=== PATIENT | female | born 1950 | race Caucasian/White ===

== ENCOUNTER → 2020-06-26 10:31 | Outpatient (CLI) | payer MEDICARE, SELFPAY ==
--- NOTE | ~2020-06-26 | XR_ITS ---
XR lumbar spine 2-3V 06/26/2020 11:03 Indication: Acute midline back pain Procedure: 3 views of the lumbar spine Comparison: No prior studies for comparison. Findings: There is disc narrowing at all lumbar levels with the exception of L5-S1. There is disc jacques rowing at L4-5 with vacuum phenomena. There is grade 1 degenerative spondylolisthesis at L4-5 seconda ry to facet hypertrophy. There is advanced multilevel facet hypertrophy of the mid and lower lumbar s pine. No acute fracture or traumatic malalignment. There is levoscoliosis. Impression: 1: Severe lumbar spondylosis. Reviewed, dictated and finalized at location B. Impression: 1: Severe lumbar spondylosis.
--- NOTE | ~2020-06-26 | XR_ITS ---
EXAMINATION: XR thoracic spine 3V DATE: 06/26/2020 11:03 INDICATION: Acute midline back pain. TECHNIQUE: 3 views of thoracic spine were obtained. COMPARISON: CT chest 07/28/2016 FINDINGS: There is 6 degrees dextrocurvature of thoracolumbar spine. Vertebral body heights are brandon l. There is mildly decreased disc height at multiple levels in lower thoracic spine. There are endpla te osteophytes at most levels. IMPRESSION: 1. Mild thoracic spondylosis. Reviewed, dictated and finalized at location A.
== END ==
PROVIDERS: PCP Family Medicine
DX: M47.894 Other spondylosis, thoracic region (principal); M47.896 Other spondylosis, lumbar region
CPT/HCPCS: 72072; 72100

== ENCOUNTER → 2021-03-06 11:37 | Outpatient (CLI) | payer MEDICARE, SELFPAY ==
--- NOTE | ~2021-03-06 | XR_ITS ---
EXAMINATION: XR hand RT 2V DATE: 03/06/2021 11:55 INDICATION: Polyarthralgia. TECHNIQUE: 2 views of right hand were obtained. COMPARISON: None. FINDINGS: Bone alignment is normal. No fracture. There is severe osteoarthritis of lunate-capitate raymon int and first carpometacarpal joint. There is moderate osteoarthritis of first metacarpophalangeal raymon int and mild osteoarthritis of second-fourth metacarpophalangeal joints. There is mild to moderate os teoarthritis of most of the interphalangeal joints. There is severe osteoarthritis of second distal i nterphalangeal joint. There is heterotopic ossification adjacent to the second and third distal inter phalangeal joints and second-fifth proximal interphalangeal joints. IMPRESSION: 1. Polyarticular osteoarthritis. Reviewed, dictated and finalized at location A.
--- NOTE | ~2021-03-06 | XR_ITS ---
EXAMINATION: XR hand LT 2V DATE: 03/06/2021 11:55 INDICATION: Polyarthralgia. TECHNIQUE: 2 views of left hand were obtained. COMPARISON: None. FINDINGS: Bone alignment is normal. No fracture. There is severe osteoarthritis of first carpometacar pal joint with loose bodies. There is severe osteoarthritis of first metacarpophalangeal joint and mi ld osteoarthritis of second through fifth metacarpophalangeal joints. There is mild/moderate osteoart hritis of most of the interphalangeal joints. There is severe osteoarthritis of second distal interph alangeal joint. There is heterotopic ossification adjacent to the second and third distal interphalan geal joints of fifth proximal interphalangeal joint. IMPRESSION: 1. Polyarticular osteoarthritis. Reviewed, dictated and finalized at location A.
== END ==
PROVIDERS: PCP Family Medicine; Visit Provider Physician Assistant
DX: M19.042 Primary osteoarthritis, left hand (principal); M19.041 Primary osteoarthritis, right hand
CPT/HCPCS: 73120

== ENCOUNTER → 2022-07-01 15:12 | Outpatient (CLI) | payer MEDICARE, SELFPAY ==
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
== END ==
PROVIDERS: PCP Family Medicine; Visit Provider Physician Assistant
DX: M19.021 Primary osteoarthritis, right elbow (principal)
CPT/HCPCS: 73070

== ENCOUNTER → 2022-08-04 15:33 | Outpatient (CLI) | payer MEDICARE, SELFPAY ==
--- NOTE | ~2022-08-04 | XR_ITS ---
XR lumbar spine 2-3V DATE: 08/04/2022 15:49 INDICATION: Acute right low back pain, right sciatica TECHNIQUE: AP, lateral, coned lateral lumbosacral views COMPARISON: 06/26/2020 lumbar spine FINDINGS: There is mild rotatory levoscoliosis of the lumbar spine. There is diffuse osteopenia. There is mild degenerative disc disease at L1-2 and L2-3. There is moderate degenerative disc disease at L3-4 and severe degenerative disc disease at L4-5. The re is degenerative changes apophyseal joints with minimal anterolisthesis at L3-4 and greater grade 1 anterolisthesis at L4-5. Compared to . Little interval change. L5-S1 interspace is relatively preserved. The sacroiliac joints are intact. IMPRESSION: Osteopenia Mild rotatory levoscoliosis Degenerative changes, relatively stable since 2019 since Reviewed, dictated and finalized at location A.
== END ==
PROVIDERS: PCP Family Medicine
DX: M54.41 Lumbago with sciatica, right side (principal); M85.88 Other specified disorders of bone density and structure, other site
CPT/HCPCS: 72100

== ENCOUNTER → 2022-09-27 12:05 | Outpatient (CLI) | payer MEDICARE, SELFPAY ==
--- NOTE | ~2022-09-27 | MR_ITS ---
EXAMINATION: MR foot LT wo/w con DATE: 09/27/2022 13:15 INDICATION: Left great toe pain TECHNIQUE: Magnetic resonance imaging (MRI) of the left fore/mid foot was performed without intraveno us contrast. Sequences included axial, sagittal and coronal T1-weighted FSE and fluid sensitive FSE S TIR, axial T1-weighted FS FSE and postcontrast axial, sagittal and coronal T1-weighted FS FSE. COMPARISON: None FINDINGS: Instrumented midfoot arthrodesis with fusion between the navicula, the medial, mid and lateral cuneif orms and base of the second and third metatarsals. Metallic magnetic field artifact associated with a ssociated screw fixation. Alignment remains essentially anatomic. No fractures. Severe osteoarthritis at the first metatarsophalangeal joint with subarticular edema-like and cystlike changes. Foci of osullivan sceptibility artifact along the dorsal margin of the head of the first metatarsal which suggests prio r surgery such as cheilectomy. Moderate to severe nonuniform joint space narrowing consistent with osteoarthritis at the first inter phalangeal joint with surrounding nonspecific joint effusion with enhancing synovitis. There is subar ticular edema at both sides of the joint space. No evident cortical erosion or geographic loss of T1 fat signal to more specifically suggest osteomyelitis. Moderate to severe polyarticular osteoarthritis with subarticular edema-like signal changes at the ta lonavicular, calcaneocuboid joint, the fourth tarsal metatarsal joint and the articulation between th e between the cuboid and the lateral cuneiform. Mild osteoarthritis at several of the remaining metat arsophalangeal and interphalangeal joints. Collateral ligament complex at the metatarsophalangeal and interphalangeal joint spaces appear intact. The flexor and extensor tendons and intrinsic musculatur e of the foot are unremarkable. IMPRESSION: 1. Moderate to severe polyarticular osteoarthritis involving multiple joints in the mid and forefoot. 2. Moderate to severe osteoarthritis with nonspecific joint effusion and enhancing synovitis at the f irst interphalangeal joint which is most likely degenerative but could also be inflammatory or septic in etiology although there is no evident cortical erosion or geographic loss of T1 marrow fat signal at the first interphalangeal joint to more specifically suggest the latter. 3. Instrumented midfoot arthrodesis with fusion between the navicula, medial, mid and lateral cuneifo dae and base of the second and third metatarsals. Reviewed, dictated and finalized at location B. ENT SUPPORT ASSISTANT IMPRESSION: 1. Moderate to severe polyarticular osteoarthritis involving multiple joints in the mid and forefoot. 2. Moderate to severe osteoarthritis with nonspecific joint effusion and enhanc ing synovitis at the first interphalangeal joint which is most likely degenerat adrienne but could also be inflammatory or septic in etiology although there is no e vident cortical erosion or geographic loss of T1 marrow fat signal at the first interphalangeal joint to more specifically suggest the latter. 3. Instrumented midfoot arthrodesis with fusion between the navicula, medial, m id and lateral cuneiforms and base of the second and third metatarsals.
== END ==
PROVIDERS: PCP Family Medicine
DX: M19.072 Primary osteoarthritis, left ankle and foot (principal)
CPT/HCPCS: 73720; A9577